=== PATIENT | male | born 1960 | race Caucasian/White ===

== ENCOUNTER 2016-11-14 11:24 | Inpatient (IN) | payer MEDICARE ==
[~2016-11-14] VITALS: Ht 182.9 cm; Wt 96.7 kg
[2016-11-14] MEDS ORDERED: NS 1,000 ML IV ONE (13:15)
[2016-11-14] MEDS ORDERED: AMPICILLIN SOD/SULBACTAM SOD 3 GM in D5W MINI-BAG PLUS 100 ML IV ONE (13:15)
[2016-11-14 14:09] LABS: BASO # 0.1 K/mm3 (0.0-0.2); BASO % 0.5 % (0.0-1.0); EOS % 0.3 % (0.0-3.0); LARGE UNSTAINED CELL # 0.2 K/mm3 (0.0-0.4); LARGE UNSTAINED CELL % 1.4 % (0.0-4.0); LYMPH # 2.2 K/mm3 (1.5-4.5); MEAN CORPUSCULAR HEMOGLOBIN 27.5 pg (27.0-33.0); MEAN CORPUSCULAR HGB CONC 34.1 g/dl (32.0-36.5); MEAN CORPUSCULAR VOLUME 80.7 fl (80.0-96.0); MONO # 0.9 K/mm3 (0.0-0.8); MONO % 5.8 % (0.0-5.0); NEUTROPHILS # 12.2 K/mm3 (1.8-7.7); NEUTROPHILS % 78.1 % (36.0-66.0); PLATELET COUNT, AUTOMATED 326 k/mm3 (150-450); RED CELL DISTRIBUTION WIDTH 12.7 % (11.5-14.5); WHITE BLOOD COUNT 15.6 K/mm3 (4.0-10.0)
[2016-11-14 14:12] LABS: ANION GAP 10 MEQ/L (8-16); BLOOD UREA NITROGEN 14 MG/DL (7-18); CALCIUM LEVEL 9.7 MG/DL (8.5-10.1); CARBON DIOXIDE LEVEL 24 MEQ/L (21-32); CHLORIDE LEVEL 103 MEQ/L (98-107); CREATININE FOR GFR 1.13 MG/DL (0.70-1.30); GLOMERULAR FILTRATION RATE > 60.0 (>56); GLUCOSE, FASTING 112 MG/DL (70-105); POTASSIUM SERUM 3.8 MEQ/L (3.5-5.1); SODIUM LEVEL 137 MEQ/L (136-145)
[2016-11-14] MEDS ORDERED: ISOVUE-370 76% 100ML VIAL (Q9967) As Ordered ONE (14:15)
[2016-11-14] MEDS ORDERED: METOPROLOL 5 MG/5 ML VIAL IV STA (15:03)
[2016-11-14] MEDS ORDERED: ONDANSETRON 4MG/2ML VIAL (J2405) IV PRN (15:15)
[2016-11-14] MEDS ORDERED: PERCOCET 5MG/325MG TAB PO PRN ×2 (15:15→15:30)
[2016-11-14] MEDS ORDERED: VANCOMYCIN HCL 1,000 MG, VIAL MATE ADAPTER 1 EACH in D5W 250 ML IV ONE (15:30)
[2016-11-14] MEDS ORDERED: MORPHINE 2 MG/ML 1ML SYRINGE IV PRN (15:30)
[2016-11-14] MEDS ORDERED: METOPROLOL TART 25 MG TABLET PO ONE (15:30)
[2016-11-14 16:10] LABS: ERYTHROCYTE SEDIMENTATION RATE 5 mm/hr (0-20)
[2016-11-14] MEDS ORDERED: cloNIDine 0.1 MG TAB PO ONE (16:30)
[2016-11-14] MEDS ORDERED: LABETALOL 100 MG TAB PO ONE (16:30)
--- NOTE | 2016-11-14 17:04 | HPEPDOC ---
General Date of Admission Nov 14, 2016 at 15:09 Chief Complaint The patient is a 56-year-old male admitted with a reason for visit of Dental Abscess/Facial Cellulitis. Source: Patient, Family Exam Limitations: Mild cognitive slowing, Other Severity: Severe History of Present Illness Mr Briones is a 56 year old male with no known past medical history, presents today after 2 day history of left sided swelling that began gradually. He has a slight degree of cognitive impairment and his mom is at bedside and provides much of the history. Apparently she has been trying to get him to come to the hospital for the facial swelling and he only agreed to do so today. The patient states he has not seen a doctor ( or any HCP for that matter) in greater than 20 years and as such he states he has no known medical problems, and takes no medications. He denies a history of trauma to the left side of his face but admits he doesn't take care of his teeth well, he has poor oral hygiene and does not see a dentist. He denies fever,rigors, nausea, vomiting, abdominal pain , diarrhea, constipation, loss of appetite, headache, nor blurred vision but does state its a little hard for him to see out of his left eye due to the facial swelling. He states that the facial swelling does not give him significant pain and doesn't seem to bother him too much except at night when he lays down on that side of his face to go to sleep. Home Medications No Active Prescriptions or Reported Meds Allergies Coded Allergies: No Known Allergies (Unverified , 11/14/16) Past Medical History Medical History no past medical history, however patient has not seen a doctor or other HCP in > 20 years Surgical History none Family History mother had DM2 and HTN father at age 38 from [place] Social History * Smoker: Denies Alcohol: Denies Drugs: denies Recent Travel/Sick Contacts: Denies: Recent travel lives with his mother, has a degree of impaired cognitive abilities. Review of Symptoms Constitutional: Denies: Chills, Fever Eyes: Reports: Eyelid inflammation (left eye), Vision change (decreased left eye vision due to swelling/inflammation ), Denies: Pain ENT: Denies: Dysphagia, Ear Pain, Head Aches, Post Nasal Drip, Sinus Congestion , Sore Throat Skin: Denies: Breakdown, Bruising, Dry, Itching, Jaundice, Lesions, Rash Pulmonary: Denies: Cough, Dyspnea, Pleuritic Chest Pain Cardiovascular: Denies: Chest Pain, Orthopnea, Palpitations Gastrointestinal: Denies: Abdominal Pain, Constipation, Diarrhea, Nausea, Vomiting Genitourinary: Denies: Dysuria Musculoskeletal: Denies: Neck Pain, Spasms Neurological: Denies: Change in speech, Incoordination, Numbness, Weakness Psych: Reports: Other Psych (degree of cognitive impairment) Physical Examination General Exam: Positive: Alert, Cooperative, Mild Distress Eye Exam: Positive: Conjunctiva & lids normal, EOMI, Other Eye Symptoms (left eye vision diminshed due to inflammation of left side of face), PERRLA ENT Exam: Positive: Atraumatic, Mucous membr. moist/pink, Nares Patent, Pharynx Normal, Tongue Midline, Negative: Pharyngeal Edema Neck Exam: Positive: Supple Chest Exam: Positive: Clear to auscultation, Normal air movement, Negative: Diminished, Rales, Rhonchi, Wheezing Heart Exam: Positive: Normal S1, Normal S2, Rate Normal Abdomen Exam: Positive: Normal bowel sounds, Soft, Negative: BS Hyperactive, BS Hypoactive, Hepatospenomegaly, Tenderness Extremity Exam: Negative: Clubbing, Cyanosis, Edema Psych Exam: Positive: Mental status NL, Other (degree of impaired cognition) Vital Signs Vital Signs Date Time Temp Pulse Resp B/P Pulse Ox O2 Delivery O2 Flow Rate FiO2 11/14/16 16:48 99.9 81 18 174/112 96 Room Air Laboratory Data Labs 24H Laboratory Tests 2 11/14/16 13:32: Anion Gap 10, White Blood Count 15.6H, Red Blood Count 5.76, Hemoglobin 15.8, Hematocrit 46.5, Mean Corpuscular Volume 80.7, Mean Corpuscular Hemoglobin 27.5 , Mean Corpuscular Hemoglobin Concent 34.1, Red Cell Distribution Width 12.7, Platelet Count 326, Neutrophils (%) (Auto) 78.1H, Lymphocytes (%) (Auto) 14.0L, Monocytes (%) (Auto) 5.8H, Eosinophils (%) (Auto) 0.3, Basophils (%) (Auto) 0.5 , Neutrophils # (Auto) 12.2H, Lymphocytes # (Auto) 2.2, Monocytes # (Auto) 0.9H , Eosinophils # (Auto) 0.0, Basophils # (Auto) 0.1, C-Reactive Protein, Quantitative 3.14H, Blood Urea Nitrogen 14, Creatinine 1.13, Sodium Level 137, Potassium Level 3.8, Chloride Level 103, Carbon Dioxide Level 24, Calcium Level 9.7, Erythrocyte Sedimentation Rate 5, Glomerular Filtration Rate > 60.0, Large Unclassified Cells # 0.2, Large Unclassified Cells % 1.4, Thyroid Stimulating Hormone (TSH) 1.120 11/14/16 13:41: Estimated Mean Plasma Glucose 131H, Hemoglobin A1c 6.2, Lactic Acid Level 2.4*H CBC/BMP Laboratory Tests 11/14/16 13:32 Calcium Level 9.7, Red Blood Count 5.76, Mean Corpuscular Volume 80.7, Mean Corpuscular Hemoglobin 27.5, Mean Corpuscular Hemoglobin Concent 34.1, Red Cell Distribution Width 12.7, Neutrophils (%) (Auto) 78.1 H, Lymphocytes (%) (Auto) 14.0 L, Monocytes (%) (Auto) 5.8 H, Eosinophils (%) (Auto) 0.3, Basophils (%) ( Auto) 0.5, Neutrophils # (Auto) 12.2 H, Lymphocytes # (Auto) 2.2, Monocytes # ( Auto) 0.9 H, Eosinophils # (Auto) 0.0, Basophils # (Auto) 0.1 Microbiology Microbiology 11/14/16 Blood Culture, Received Pending 11/14/16 Blood Culture, Received Pending 11/14/16 MRSA Screen, Received Pending Problems (1) Facial cellulitis Status: Acute Response to Treatment: Stable Problem Text: Likely secondary to poor dentition/oral hygiene and caries formation in left upper molar region Per CT of neck- possible phelgmon, facial left sided cellulitis with no abscess formation IV vancomycin therapy Unasyn therapy MRSA and blood culture pending afebrile at 99.2 F WBC 15.6 Spoke to oral surgeon physician relations manager, recommended continued IV antibiotic coverage since no abscess as per CT for drainage, they will follow up outpatient unless condition should worsen despite IV antibiotic coverage or abscess forms. (2) Elevated blood pressure reading Status: Chronic Response to Treatment: Stable Problem Text: hydralazine, labetalol and clonidine therapy 174/112 after labetalol administration 200/110 on admission (3) DVT prophylaxis Status: Acute Response to Treatment: Stable Problem Text: SCDs Plan / VTE VTE Prophylaxis Ordered?: Yes GME ATTESTATION GME ATTESTATION My preceptor for this patient encounter was physically present in the building during the encounter and was fully available. As needed, all aspects of the patient interview, examination, medical decision making process, and medical care plan development were reviewed and approved by the preceptor. Preceptor is aware and concurs with the plan as stated in the body of this note and will attest to such by his/her cosignature. JACQUELINE HILTON DO Nov 14, 2016 17:03
[2016-11-14 17:30] VITALS: BP 198/118
[2016-11-14] MEDS: hydrALAZINE INJ 20 MG/ML VIAL IV SCH ×2 (17:57→23:03)
[2016-11-14] MEDS: NS 1,000 ML IV SCH ×2 (17:57→23:04)
[2016-11-14 18:07] VITALS: BP 148/86
[2016-11-14] MEDS ORDERED: MAG SULF 1GM/100ML (MAG RUN) 1 GM in APPROPRIATE DILUENT 1 EA IV ONE (18:15)
[2016-11-14] MEDS ORDERED: POTASSIUM CHLORIDE 10 MEQ SR TABLET PO ONE (18:30)
[2016-11-14 20:00] VITALS: BP 169/91
[2016-11-14] MEDS: ACETAMINOPHEN TAB 650MG DOSE (2X325MG) PO PRN (20:26)
[2016-11-14] MEDS: VANCOMYCIN HCL 1,000 MG, VIAL MATE ADAPTER 1 EACH in D5W 250 ML IV SCH (20:26)
[2016-11-14] MEDS: AMPICILLIN SOD/SULBACTAM SOD 3 GM in D5W MINI-BAG PLUS 100 ML IV SCH (23:02)
[2016-11-14] MEDS: LABETALOL 100 MG TAB PO SCH (23:04)
[2016-11-14 23:59] VITALS: BP 153/74
[2016-11-15] VITALS (7 sets, daily range): BP systolic 130–180; BP diastolic 78–100
[2016-11-15] MEDS: hydrALAZINE INJ 20 MG/ML VIAL IV SCH ×6 (01:06→22:45)
[2016-11-15] MEDS: AMPICILLIN SOD/SULBACTAM SOD 3 GM in D5W MINI-BAG PLUS 100 ML IV SCH ×4 (02:35→21:28)
[2016-11-15] MEDS: VANCOMYCIN HCL 1,000 MG, VIAL MATE ADAPTER 1 EACH in D5W 250 ML IV SCH ×3 (03:58→20:35)
[2016-11-15] MEDS: NS 1,000 ML IV SCH ×2 (03:59→11:13)
[2016-11-15 05:41] LABS: BASO % 0.4 % (0.0-1.0); EOS # 0.1 K/mm3 (0.0-0.50); EOS % 0.7 % (0.0-3.0); LARGE UNSTAINED CELL # 0.2 K/mm3 (0.0-0.4); LARGE UNSTAINED CELL % 1.6 % (0.0-4.0); LYMPH # 2.2 K/mm3 (1.5-4.5); LYMPH % 16.9 % (24.0-44.0); MEAN CORPUSCULAR HEMOGLOBIN 27.2 pg (27.0-33.0); MEAN CORPUSCULAR HGB CONC 33.8 g/dl (32.0-36.5); MEAN CORPUSCULAR VOLUME 80.5 fl (80.0-96.0); MONO # 1.1 K/mm3 (0.0-0.8); MONO % 8.9 % (0.0-5.0); NEUTROPHILS # 8.5 K/mm3 (1.8-7.7); NEUTROPHILS % 71.5 % (36.0-66.0); PLATELET COUNT, AUTOMATED 247 k/mm3 (150-450); RED CELL DISTRIBUTION WIDTH 12.8 % (11.5-14.5); WHITE BLOOD COUNT 11.8 K/mm3 (4.0-10.0)
[2016-11-15 06:02] LABS: ANION GAP 10 MEQ/L (8-16); BLOOD UREA NITROGEN 11 MG/DL (7-18); CARBON DIOXIDE LEVEL 21 MEQ/L (21-32); CHLORIDE LEVEL 110 MEQ/L (98-107); CHOLESTEROL LEVEL 159 MG/DL (<200); CREATININE FOR GFR 0.97 MG/DL (0.70-1.30); GLOMERULAR FILTRATION RATE > 60.0 (>56); GLUCOSE, FASTING 156 MG/DL (70-105); POTASSIUM SERUM 3.4 MEQ/L (3.5-5.1); SODIUM LEVEL 141 MEQ/L (136-145); TRIGLYCERIDES LEVEL 81 MG/DL (<150)
--- NOTE | 2016-11-15 06:48 | REP ---
CT SOFT-TISSUE NECK WITH CONTRAST: 11/14/2016. Clinical history: Left facial cellulitis. Question dental abscess. Technique: Bolus of 75 ml Optiray-320 given and scanning through the neck and facial regions. Findings: There is carious dentition involving the maxilla with at least two breaches of the maxillary cortex anteriorly with adjacent soft tissue swelling much greater left than right. The buccal mucosa is thickened more on the left than right adjacent to the maxillary alveolar ridge and there is carious dentition on both sides of the maxilla, the right mandible and with absent molars on the mandible. There is no penetration of the septum on either orbit so of this is preseptal cellulitis on that left side for the lower half of the orbit. There is an air-fluid level in the maxillary sinus representing acute sinusitis. I do not see fracture of the maxillary sinus randolph. Zygomatic arches, nasal spine of the maxilla and nasal bones are intact. Septum slightly deviated towards the right. The right maxillary sinus shows mucosal thickening anteriorly at its inferior margin. The ostiomeatal complexes are patent bilaterally. I do not see facial swelling on the right. Some degenerative disc changes in the cervical spine noted. Craniocervical junction intact. The mandibular condyles articulate normally with the skull base. Mastoids are symmetric and grossly intact. Impression: 1. Facial cellulitis and thickening/edema of the buccal mucosa suspicious for a phlegmon or early abscess development related to carious dentition in the left maxillary alveolar ridge. The swelling extends up the left side of the face to the intraorbital region with preseptal cellulitis. No drainable abscess cavity or fluid collection visible. There is most likely infection, however. Signed by Jameson Trujillo MD 11/15/2016 07:59 A
[2016-11-15] MEDS: LABETALOL 100 MG TAB PO SCH ×2 (08:56→21:28)
[2016-11-15] MEDS: KCL 10MEQ IN 100ML SWI (KRUN) 10 MEQ in APPROPRIATE DILUENT 1 EA IV SCH ×6 (08:57→12:32)
[2016-11-15] MEDS ORDERED: amLODIPine 5 MG TAB PO SCH (09:00)
--- NOTE | 2016-11-15 10:29 | PHACANCOPD ---
PHARMACY VANCOMYCIN DOSING Pt Demographics Demographics Patient Age:56 , Weight:96.900 , Gender: male Adjusted Body Weight Date: 11/15/16, Adjusted Body Weight: Kg Events Past 24 Hours Events Past 24 Hours: YES: Elevation in WBC, Fever, NO: Change in CrCl, Dialysis, Diuretic Therapy, Other, Pending Diagnostics, Pending Procedures Vancomycin Vancomycin indication: facial cellulitis/dental Vancomycin Target Ranges: 10-20 mcg/ml Vancomycin Load Y/N: Yes Load Dose Date Time Vancomycin Load Dose: 1000mg Date: 11/14 Time: 16:00, 20:00 Vancomycin Dose Date: 11/15/16. Current Vancomycin Dose: [1g IV q8h @20] Intermittent Dosing?: No Labs Labs Item Value Date Time White Blood Count 15.6 K/mm3 H 11/14/16 1332 White Blood Count 11.8 K/mm3 H 11/15/16 0457 Creatinine 1.13 MG/DL 11/14/16 1332 Creatinine 0.97 MG/DL 11/15/16 0457 C-Reactive Protein, Quantitative 3.14 MG/DL H 11/14/16 1332 Vital Signs Label Value Date Time Patient Temperature 100.1 degrees F 11/15/16 0400 Temperature Source Temporal 11/15/16 0400 Patient Temperature 100.1 degrees F 11/15/16 0800 Temperature Source Skin 11/15/16 0800 Patient Temperature 99.9 degrees F 11/14/16 2359 Temperature Source Temporal 11/14/16 2359 Micro Microbiology 11/14/16 Blood Culture, Received Pending 11/14/16 Blood Culture, Received Pending 11/14/16 MRSA Screen, Received Pending Creatinine Clearance Date:11/15/16. Creatinine Clearance: [94 ml/min]. Pending Labs vanco trough 11/16 @11:00 Assessment and Plan Maintaining Current Dose?: Yes Reason for dose change: No Dose Change Pharmacist Note Pharmacist Note Date: 11/15/16. Pharmacist note: pt has been admitted for facial cellulitis secondary to possible dental abscess. He has poor oral hygiene and no medical Hx. So far, imaging has ruled out an abscess and he will be treated with IV abx and follow up outpatient. Unasyn and vancomycin were started yesterday afternoon , WBCs have improved but pt remains febrile. I started him on vanco IV 1g x2 doses 4 hours apart followed by 1g q8h. I have a trough ordered for tomorrow morning. Jake Garcia Pharm.D. Nov 15, 2016 10:29
--- NOTE | 2016-11-15 14:05 | IPNPDOC ---
Text Note Date of Service The patient was seen on 11/15/16. NOTE Subjective: Patient states the swelling on the left side of his face has significantly improved. Objective: Vitals: (see below) General: No acute distress, laying comfortably in bed. HEENT: Moist mucous membranes. Left facial swelling and induration improved. This has been marked when the patient was admitted. Patient does have significant dental caries. No tenderness. Able to open his mouth completely. No drainage noted. Visual ventura intact. Pupils 2-3 mm equal and reactive to light. EOMI. Neck: No JVD or lymphadenopathy Cardiac: RRR, No murmurs Pulm: Clear to auscultation b/l. No wheezing, rhonchi Abd: NT/ND + BS Ext: No edema or cyanosis Labs (see below) Images: CT Neck 11/14/16 Impression: 1. Facial cellulitis and thickening/edema of the buccal mucosa suspicious for a phlegmon or early abscess development related to carious dentition in the left maxillary alveolar ridge. The swelling extends up the left side of the face to the intraorbital region with preseptal cellulitis. No drainable abscess cavity or fluid collection visible. There is most likely infection, however. Assessment/Plan 1. Facial cellulitis, with possible phlegmon and no overt abscess formation - patient on Unasyn and vancomycin. Leukocytosis and CRP are improving. Lactic acidosis resolved. Afebrile. We'll continue IV antibiotics. Admitting attending had spoken to the hvac operations technician oral surgeon, who recommended continuing antibiotics and no surgical intervention at this time. 2. Dental caries- will need outpatient dental follow-up. 3. Hypertension- continue current meds. Amlodipine added. 4. Baseline mental retardation 5. Hypokalemia- replaced DVT prophy: Enoxaparin VS,Fishbone, I+O VS, Fishbone, I+O Laboratory Tests 11/15/16 04:57 Red Blood Count 4.29 L, Mean Corpuscular Volume 80.5, Mean Corpuscular Hemoglobin 27.2, Mean Corpuscular Hemoglobin Concent 33.8, Red Cell Distribution Width 12.8, Neutrophils (%) (Auto) 71.5 H, Lymphocytes (%) (Auto) 16.9 L, Monocytes (%) (Auto) 8.9 H, Eosinophils (%) (Auto) 0.7, Basophils (%) ( Auto) 0.4, Neutrophils # (Auto) 8.5 H, Lymphocytes # (Auto) 2.2, Monocytes # ( Auto) 1.1 H, Eosinophils # (Auto) 0.1, Basophils # (Auto) 0.0 Vital Signs Date Time Temp Pulse Resp B/P Pulse Ox O2 Delivery O2 Flow Rate FiO2 11/15/16 10:00 152/82 11/15/16 08:56 94 11/15/16 08:00 100.1 18 95 Room Air I&O- Last 24 Hours up to 6 AM 11/15/16 06:00 Intake Total 240 ml Output Total 1350 ml Balance -1110 ml AMRIT BARRAZA MD Nov 15, 2016 14:05
[2016-11-15] MEDS: ENOXAPARIN 40 MG/0.4 ML SYRINGE (J1650) SC SCH (17:06)
[2016-11-15] MEDS ORDERED: amLODIPine 5 MG TAB PO ONE (17:30)
[2016-11-15] MEDS: ACETAMINOPHEN TAB 650MG DOSE (2X325MG) PO PRN ×2 (18:06→23:58)
[2016-11-16] MEDS: hydrALAZINE INJ 20 MG/ML VIAL IV SCH ×4 (02:00→14:00)
[2016-11-16] MEDS: AMPICILLIN SOD/SULBACTAM SOD 3 GM in D5W MINI-BAG PLUS 100 ML IV SCH ×4 (02:55→21:12)
[2016-11-16] MEDS: VANCOMYCIN HCL 1,000 MG, VIAL MATE ADAPTER 1 EACH in D5W 250 ML IV SCH ×3 (03:37→21:12)
[2016-11-16 05:37] LABS: BASO # 0.1 K/mm3 (0.0-0.2); BASO % 0.7 % (0.0-1.0); EOS # 0.2 K/mm3 (0.0-0.50); EOS % 1.3 % (0.0-3.0); LARGE UNSTAINED CELL # 0.2 K/mm3 (0.0-0.4); LARGE UNSTAINED CELL % 1.8 % (0.0-4.0); LYMPH # 2.1 K/mm3 (1.5-4.5); MEAN CORPUSCULAR HEMOGLOBIN 26.9 pg (27.0-33.0); MEAN CORPUSCULAR HGB CONC 33.1 g/dl (32.0-36.5); MONO # 0.9 K/mm3 (0.0-0.8); MONO % 7.3 % (0.0-5.0); NEUTROPHILS # 8.8 K/mm3 (1.8-7.7); NEUTROPHILS % 72.8 % (36.0-66.0); PLATELET COUNT, AUTOMATED 279 k/mm3 (150-450); RED CELL DISTRIBUTION WIDTH 12.9 % (11.5-14.5)
[2016-11-16 05:53] VITALS: BP 165/80
[2016-11-16 05:53] LABS: ANION GAP 10 MEQ/L (8-16); BLOOD UREA NITROGEN 7 MG/DL (7-18); CALCIUM LEVEL 8.4 MG/DL (8.5-10.1); CARBON DIOXIDE LEVEL 23 MEQ/L (21-32); CHLORIDE LEVEL 107 MEQ/L (98-107); CREATININE FOR GFR 0.98 MG/DL (0.70-1.30); GLOMERULAR FILTRATION RATE > 60.0 (>56); GLUCOSE, FASTING 127 MG/DL (70-105); POTASSIUM SERUM 3.8 MEQ/L (3.5-5.1); SODIUM LEVEL 140 MEQ/L (136-145)
[2016-11-16] MEDS: ACETAMINOPHEN TAB 650MG DOSE (2X325MG) PO PRN (06:00)
[2016-11-16] MEDS ORDERED: LISINOPRIL 10 MG TAB PO ONE (07:45)
[2016-11-16 08:00] VITALS: BP 140/77
[2016-11-16] MEDS: LABETALOL 100 MG TAB PO SCH ×2 (08:44→21:12)
[2016-11-16] MEDS: amLODIPine 10 MG TAB PO SCH (08:44)
[2016-11-16] MEDS ORDERED: ISOVUE-370 76% 100ML VIAL (Q9967) As Ordered ONE (09:01)
--- NOTE | 2016-11-16 11:23 | REP ---
MAXILLOFACIAL CT STUDY WITH CONTRAST: HISTORY: Re-evaluate possible abscess. Comparison CT study of the neck is from 11/14/2016. CT CONTRAST DOSE: 75 mL of Isovue-[address] TECHNIQUE: Helical scanning is acquired, and 3 mm axial images are reformatted. Coronal and sagittal multiplanar reformation images are generated. FINDINGS: There is evidence of a 1.5 x 1.0 x 1.4 cm left periodontal abscess adjacent to carious teeth at the left mid maxillary alveolus. There is adjacent soft tissue swelling. There is some bony irregularity and lucency surrounding the two of the anterior left maxillary teeth. However, bony irregularity and erosive changes even more prominent in the anterior maxillary alveolus on the right. There is no right-sided abscess seen. There is an air-fluid level in the left maxillary sinus again noted. There is preseptal periorbital soft tissue swelling again seen, although this appears somewhat improved. No intracranial fluid collection or abnormality noted. IMPRESSION: 1.5 cm left periodontal abscess adjacent to the anterior maxilla on the left related to multiple carious teeth. Bilateral maxillary alveolar bony erosive change, this latter finding is actually more prominent on the right. Signed by Eddie Doan MD 11/16/2016 11:51 A
[2016-11-16 11:34] VITALS: BP 122/71
[2016-11-16] MEDS ORDERED: SLF 3 ML SYR IV PRN (11:45)
--- NOTE | 2016-11-16 14:14 | IPNPDOC ---
Text Note Date of Service The patient was seen on 11/16/16. NOTE Subjective: Patient states the swelling has improved. Objective: Vitals: (see below) General: No acute distress, laying comfortably in bed. HEENT: Moist mucous membranes. Left facial swelling has significantly improved. Patient does have significant dental caries. No tenderness. Able to open his mouth completely. No drainage noted. Visual ventura intact. Pupils 2-3 mm equal and reactive to light. EOMI. Neck: No JVD or lymphadenopathy Cardiac: RRR, No murmurs Pulm: Clear to auscultation b/l. No wheezing, rhonchi Abd: NT/ND + BS Ext: No edema or cyanosis Labs (see below) Images: CT Neck 11/14/16 Impression: 1. Facial cellulitis and thickening/edema of the buccal mucosa suspicious for a phlegmon or early abscess development related to carious dentition in the left maxillary alveolar ridge. The swelling extends up the left side of the face to the intraorbital region with preseptal cellulitis. No drainable abscess cavity or fluid collection visible. There is most likely infection, however. CT Maxillofacial 11/16/16 FINDINGS: There is evidence of a 1.5 x 1.0 x 1.4 cm left periodontal abscess adjacent to carious teeth at the left mid maxillary alveolus. There is adjacent soft tissue swelling. There is some bony irregularity and lucency surrounding the two of the anterior left maxillary teeth. However, bony irregularity and erosive changes even more prominent in the anterior maxillary alveolus on the right. There is no right-sided abscess seen. There is an air-fluid level in the left maxillary sinus again noted. There is preseptal periorbital soft tissue swelling again seen, although this appears somewhat improved. No intracranial fluid collection or abnormality noted. IMPRESSION: 1.5 cm left periodontal abscess adjacent to the anterior maxilla on the left related to multiple carious teeth. Bilateral maxillary alveolar bony erosive change, this latter finding is actually more prominent on the right. Assessment/Plan 1. Facial cellulitis,now with abscess formation - patient on Unasyn and vancomycin. Leukocytosis and CRP are improving. Lactic acidosis resolved. Afebrile. We'll continue IV antibiotics. Spoke with Dr. Dunne, who will be seeing patient today. 2. Dental caries- will need outpatient dental follow-up. 3. Hypertension- continue current meds. Amlodipine added. 4. Baseline mental retardation 5. Hypokalemia- replaced DVT prophy: Enoxaparin VS,Fishbone, I+O VS, Fishbone, I+O Laboratory Tests 11/16/16 04:57 Calcium Level 8.4 L, Red Blood Count 4.50, Mean Corpuscular Volume 81.0, Mean Corpuscular Hemoglobin 26.9 L, Mean Corpuscular Hemoglobin Concent 33.1, Red Cell Distribution Width 12.9, Neutrophils (%) (Auto) 72.8 H, Lymphocytes (%) ( Auto) 16.0 L, Monocytes (%) (Auto) 7.3 H, Eosinophils (%) (Auto) 1.3, Basophils (%) (Auto) 0.7, Neutrophils # (Auto) 8.8 H, Lymphocytes # (Auto) 2.1, Monocytes # (Auto) 0.9 H, Eosinophils # (Auto) 0.2, Basophils # (Auto) 0.1 Vital Signs Date Time Temp Pulse Resp B/P Pulse Ox O2 Delivery O2 Flow Rate FiO2 11/16/16 11:34 99.9 85 20 122/71 95 Room Air I&O- Last 24 Hours up to 6 AM 11/16/16 06:00 Intake Total 2140 ml Output Total 1700 ml Balance 440 ml AMRIT BARRAZA MD Nov 16, 2016 14:14
[2016-11-16] MEDS: SLF 3 ML SYR IV SCH ×2 (14:39→21:12)
[2016-11-16 16:00] VITALS: BP 169/79
[2016-11-16] MEDS: ENOXAPARIN 40 MG/0.4 ML SYRINGE (J1650) SC SCH (18:35)
[2016-11-16 20:24] VITALS: BP 159/79
[2016-11-17 00:03] VITALS: BP 139/77
[2016-11-17] MEDS: AMPICILLIN SOD/SULBACTAM SOD 3 GM in D5W MINI-BAG PLUS 100 ML IV SCH ×2 (03:29→08:51)
[2016-11-17] MEDS: VANCOMYCIN HCL 1,000 MG, VIAL MATE ADAPTER 1 EACH in D5W 250 ML IV SCH ×2 (03:29→12:00)
[2016-11-17] MEDS: SLF 3 ML SYR IV SCH (03:29)
[2016-11-17 05:28] LABS: BASO # 0.1 K/mm3 (0.0-0.2); BASO % 0.5 % (0.0-1.0); EOS # 0.3 K/mm3 (0.0-0.50); EOS % 2.7 % (0.0-3.0); LARGE UNSTAINED CELL # 0.2 K/mm3 (0.0-0.4); LARGE UNSTAINED CELL % 1.4 % (0.0-4.0); LYMPH # 2.7 K/mm3 (1.5-4.5); LYMPH % 20.5 % (24.0-44.0); MEAN CORPUSCULAR HEMOGLOBIN 27.1 pg (27.0-33.0); MEAN CORPUSCULAR HGB CONC 34.1 g/dl (32.0-36.5); MEAN CORPUSCULAR VOLUME 79.5 fl (80.0-96.0); MONO # 0.7 K/mm3 (0.0-0.8); MONO % 5.5 % (0.0-5.0); NEUTROPHILS # 8.7 K/mm3 (1.8-7.7); NEUTROPHILS % 69.5 % (36.0-66.0); PLATELET COUNT, AUTOMATED 305 k/mm3 (150-450); RED CELL DISTRIBUTION WIDTH 12.4 % (11.5-14.5); WHITE BLOOD COUNT 12.6 K/mm3 (4.0-10.0)
[2016-11-17 05:44] VITALS: BP 153/76
[2016-11-17 05:55] LABS: ANION GAP 13 MEQ/L (8-16); BLOOD UREA NITROGEN 10 MG/DL (7-18); CARBON DIOXIDE LEVEL 21 MEQ/L (21-32); CHLORIDE LEVEL 104 MEQ/L (98-107); CREATININE FOR GFR 1.11 MG/DL (0.70-1.30); GLOMERULAR FILTRATION RATE > 60.0 (>56); GLUCOSE, FASTING 160 MG/DL (70-105); POTASSIUM SERUM 3.7 MEQ/L (3.5-5.1); SODIUM LEVEL 138 MEQ/L (136-145)
[2016-11-17] MEDS ORDERED: AUGMENTIN 500 MG TAB PO SCH ×2 (06:00→14:00)
[2016-11-17 07:52] VITALS: BP 160/91
[2016-11-17] MEDS ORDERED: AUGM875T27 PO (08:24)
[2016-11-17 08:50] VITALS: BP 160/91
[2016-11-17] MEDS: LABETALOL 100 MG TAB PO SCH (08:50)
[2016-11-17] MEDS: amLODIPine 10 MG TAB PO SCH (08:50)
[2016-11-17] MEDS ORDERED: LISINOPRIL 10 MG TAB PO SCH (09:00)
[2016-11-17] MEDS ORDERED: AMLO10TA2 PO (14:13)
[2016-11-17] MEDS ORDERED: LISI10TA4 PO (14:13)
[2016-11-17] MEDS ORDERED: LABE10TAB PO (14:13)
--- NOTE | 2016-11-17 17:17 | DSES ---
DATE OF ADMISSION: 11/14/2016 DATE OF DISCHARGE: 11/17/2016 PRIMARY CARE PROVIDER: None. CONSULTANTS: Oral Surgeon, Dr. Dunne. PROCEDURES: None. COMPLICATIONS: None. ADMISSION/DISCHARGE DIAGNOSES: 1. Facial cellulitis with abscess. 2. Dental caries. 3. Hypertension. 4. Baseline mental retardation. 5. Hypokalemia. HOSPITALIZATION COURSE: The patient is a 56-year-old male who presented to [facility] on 11/14/2016 for facial swelling. Neck CT was performed, which showed facial cellulitis suspicious for phlegmon or early abscess development. Cultures were obtained, and the patient was started on empiric antibiotic treatments, and oral surgeon consulted. With antibiotic treatment, the patient's white count showed continued improvement, and the patient had improvement of the fever. Then, the patient was evaluated by the oral surgeon, Dr. Dunne, and recommended continuing Augmentin for 10 days and the patient will followup with Dr. Dunne in the outpatient setting in 2-3 days and then the patient was determined to be medically stable for discharge on 11/17/2016. OBJECTIVE: VITAL SIGNS: Temperature is 99.1, pulse is 85, respirations 20, blood pressure is 160/91, pulse oximetry is 96% in room air. LABORATORY DATA: WBC is 12.6, hemoglobin 12.1, hematocrit 35.5, platelet count is 305. Sodium is 138, potassium 3.7, chloride is 104, carbon dioxide 21, BUN 10, creatinine 1.11, GFR greater than 60, fasting glucose 160, calcium is 9, C-reactive is 5. A1c is 6.2. Microbiology: Blood culture was negative after 72 hours, two sets. Methicillin-resistant Staphylococcus aureus (MRSA) screen is negative. IMAGING STUDIES: CT of the neck with contrast obtained on 11/14/2016 showed facial cellulitis with edema/thickening of buccal mucosa, suspicious for phlegmon or early abscess development related to the carious dentition in the left maxillary alveolar ridge. CT of the maxillofacial with contrast on 11/16/2016 showed 1.5 cm left periodontal abscess adjacent to the anterior maxilla on the left related to multiple carious teeth and bilateral maxillary alveolar bony erosive change. DISCHARGE INSTRUCTIONS: Discontinue line. Discharge home. Activity as tolerated. Diet as tolerated. The patient should followup with oral surgeon Dr. Dunne in 2-3 days. The patient will need to establish with a primary care provider, and the patient should be seen within 1-2 weeks. DISCHARGE MEDICATIONS: - amlodipine 10 mg by mouth daily - Augmentin 875 mg by mouth twice a day for 10 days - labetalol 100 mg by mouth twice a day - lisinopril 10 mg by mouth daily DISCHARGE CONDITION: Stable. DISCHARGE TIME: Greater than 30 minutes.
== END 2016-11-17 14:37 | disposition home or self-care (01) | DRG 603 ==
LOC: M ED 14:23 → M ED INP 15:09 → M PCU 17:29
PROVIDERS: ADMIT General Practice; ATTEND Internal Medicine
DX: L03.211 Cellulitis of face (principal); K02.9 Dental caries, unspecified; F79 Unspecified intellectual disabilities; K05.219 Aggressive periodontitis, localized, unspecified severity; I10 Essential (primary) hypertension; E87.6 Hypokalemia; Z79.899 Other long term (current) drug therapy; Z83.3 Family history of diabetes mellitus; Z82.49 Family history of ischemic heart disease and other diseases of the circulatory system

== ENCOUNTER → 2016-12-24 | Outpatient (REF) | payer MEDICARE ==
[~2016-12-24] MED LIST: AMLO10TA2 PO; AUGM875T27 PO; LABE10TAB PO; LISI10TA4 PO
[2016-12-24 20:25] LABS: MEAN CORPUSCULAR HEMOGLOBIN 27.7 pg (27.0-33.0); MEAN CORPUSCULAR HGB CONC 34.4 g/dl (32.0-36.5); MEAN CORPUSCULAR VOLUME 80.6 fl (80.0-96.0); RED CELL DISTRIBUTION WIDTH 12.8 % (11.5-14.5); WHITE BLOOD COUNT 9.3 K/mm3 (4.0-10.0)
[2016-12-24 20:41] LABS: ALBUMIN 4.1 GM/DL (3.2-5.2); ALBUMIN/GLOBULIN RATIO 1.24 (1.00-1.93); ALKALINE PHOSPHATASE 61 U/L (45-117); ALT/SGPT 38 U/L (12-78); ANION GAP 8 MEQ/L (8-16); AST/SGOT 15 U/L (15-37); BILIRUBIN,TOTAL 0.2 MG/DL (0.2-1.0); BLOOD UREA NITROGEN 12 MG/DL (7-18); CALCIUM LEVEL 8.5 MG/DL (8.5-10.1); CARBON DIOXIDE LEVEL 23 MEQ/L (21-32); CHLORIDE LEVEL 110 MEQ/L (98-107); CREATININE FOR GFR 0.97 MG/DL (0.70-1.30); GLOMERULAR FILTRATION RATE > 60.0 (>56); GLUCOSE, FASTING 107 MG/DL (70-105); POTASSIUM SERUM 3.8 MEQ/L (3.5-5.1); SODIUM LEVEL 141 MEQ/L (136-145); TOTAL PROTEIN 7.4 GM/DL (6.4-8.2)
== END ==
LOC: M SFHCLERA 17:00
PROVIDERS: ATTEND Family Medicine
DX: I10 Essential (primary) hypertension (principal); L03.90 Cellulitis, unspecified
CPT/HCPCS: 80053; 81001; 82043; 85027; G0463

== ENCOUNTER → 2018-03-08 | Outpatient (REF) | payer MEDICARE ==
[2018-03-08 20:31] LABS: BASO # 0.1 10^3/uL (0.0-0.2); BASO % 0.9 % (0.0-1.0); EOS # 0.3 10^3/uL (0.0-0.50); EOS % 2.8 % (0.0-3.0); HEMATOCRIT 43.4 % (42.0-52.0); HEMOGLOBIN 14.3 g/dl (13.5-17.5); IMMATURE GRANULOCYTE % 0.2 % (0-3.0); LYMPH # 2.9 10^3/uL (1.5-4.5); LYMPH % 31.9 % (24.0-44.0); MEAN CORPUSCULAR HEMOGLOBIN 27.1 pg (27.0-33.0); MEAN CORPUSCULAR HGB CONC 32.9 g/dl (32.0-36.5); MEAN CORPUSCULAR VOLUME 82.4 fl (80.0-96.0); MONO # 0.9 10^3/uL (0.0-0.8); MONO % 9.5 % (0.0-5.0); NEUTROPHILS % 54.7 % (36.0-66.0); PLATELET COUNT, AUTOMATED 286 10^3/uL (150-450); RED BLOOD COUNT 5.27 10^6/uL (4.30-6.10); RED CELL DISTRIBUTION WIDTH 12.2 % (11.5-14.5); WHITE BLOOD COUNT 9.2 10^3/uL (4.0-10.0)
[2018-03-08 20:48] LABS: ESTIMATED AVERAGE GLUCOSE 134 MG/DL (60-110); HEMOGLOBIN A1c 6.3 %
[2018-03-08 20:50] LABS: ALBUMIN 4.2 GM/DL (3.2-5.2); ALKALINE PHOSPHATASE 67 U/L (45-117); ALT/SGPT 45 U/L (12-78); ANION GAP 11 MEQ/L (8-16); AST/SGOT 23 U/L (7-37); BILIRUBIN,TOTAL 0.4 MG/DL (0.2-1.0); BLOOD UREA NITROGEN 17 MG/DL (7-18); CALCIUM LEVEL 8.8 MG/DL (8.5-10.1); CARBON DIOXIDE LEVEL 23 MEQ/L (21-32); CHLORIDE LEVEL 108 MEQ/L (98-107); CHOLESTEROL LEVEL 188 MG/DL (<200); CREATININE FOR GFR 1.11 MG/DL (0.70-1.30); GLOMERULAR FILTRATION RATE > 60.0 (>56); GLUCOSE, FASTING 106 MG/DL (70-100); HDL CHOLESTEROL 39 MG/DL (>40); NON-HDL-C 149 MG/DL; POTASSIUM SERUM 4.1 MEQ/L (3.5-5.1); SODIUM LEVEL 142 MEQ/L (136-145); TOTAL PROTEIN 7.7 GM/DL (6.4-8.2); TRIGLYCERIDES LEVEL 195 MG/DL (<150)
[2018-03-08 21:00] LABS: MAU/CREAT RATIO 5.1 MCG/MG (0.0-30.0)
== END ==
LOC: M SFHCLERA 14:46
DX: I10 Essential (primary) hypertension (principal); Z79.899 Other long term (current) drug therapy
CPT/HCPCS: 84443

== ENCOUNTER → 2019-02-13 | Outpatient (REF) | payer MEDICARE ==
[~2019-02-13] MED LIST changes: -AMLO10TA2 PO; +AMLO10TA5 PO; -AUGM875T27 PO; +AUGM875T28 PO
[2019-02-13 20:54] LABS: APPEARANCE, URINE CLEAR (CLEAR); BACTERIA, URINE AUTO NEGATIVE (NEGATIVE); BILIRUBIN, URINE AUTO NEGATIVE (NEGATIVE); BLOOD, URINE BLOOD NEGATIVE (NEGATIVE); COLOR, URINE YELLOW (YELLOW); GLUCOSE, URINE (UA) AUTO NEGATIVE (NEGATIVE); KETONE, URINE AUTO NEGATIVE (NEGATIVE); LEUKOCYTE ESTERASE, URINE AUTO NEGATIVE (NEGATIVE); MUCUS, URINE SMALL (NEGATIVE); NITRITE, URINE AUTO NEGATIVE (NEGATIVE); PROTEIN, URINE AUTO NEGATIVE (NEGATIVE); RBC, URINE AUTO 0 /HPF (0-3); SPECIFIC GRAVITY URINE AUTO 1.023 (1.002-1.035); SQUAMOUS EPITHELIAL CELL UR AU 0 /HPF (0-6); UROBILINOGEN, URINE AUTO 0.2 mg/dL (0.0-2.0); WBC, URINE AUTO 1 /HPF (0-3)
[2019-02-13 21:01] LABS: ALBUMIN 3.9 GM/DL (3.2-5.2); ALT/SGPT 45 U/L (12-78); BILIRUBIN,TOTAL 0.2 MG/DL (0.2-1.0); BLOOD UREA NITROGEN 15 MG/DL (7-18); CALCIUM LEVEL 8.7 MG/DL (8.5-10.1); CARBON DIOXIDE LEVEL 23 MEQ/L (21-32); CHLORIDE LEVEL 112 MEQ/L (98-107); CHOLESTEROL LEVEL 181 MG/DL (<200); CHOLESTEROL RISK RATIO 5.484 (<5); CREATININE FOR GFR 0.96 MG/DL (0.70-1.30); GLOMERULAR FILTRATION RATE > 60.0 (>56); GLUCOSE, FASTING 102 MG/DL (70-100); HDL CHOLESTEROL 33 MG/DL (>40); LDL CHOLESTEROL 114 MG/DL (<100); NON-HDL-C 148 MG/DL; POTASSIUM SERUM 4.1 MEQ/L (3.5-5.1); SODIUM LEVEL 143 MEQ/L (136-145); TRIGLYCERIDES LEVEL 170 MG/DL (<150)
[2019-02-13 21:11] LABS: HEMOGLOBIN A1c 6.9 %
== END ==
LOC: M SFHCLERA 17:06
PROVIDERS: ATTEND Family Medicine
DX: I10 Essential (primary) hypertension (principal)

== ENCOUNTER → 2019-06-08 | Outpatient (REF) | payer MEDICARE ==
[2019-06-08 17:19] LABS: BLOOD UREA NITROGEN 13 MG/DL (7-18); CALCIUM LEVEL 8.7 MG/DL (8.5-10.1); CARBON DIOXIDE LEVEL 25 MEQ/L (21-32); CHLORIDE LEVEL 112 MEQ/L (98-107); CREATININE FOR GFR 1.08 MG/DL (0.70-1.30); GLOMERULAR FILTRATION RATE > 60.0 (>56); GLUCOSE, FASTING 95 MG/DL (70-100); POTASSIUM SERUM 4.3 MEQ/L (3.5-5.1); SODIUM LEVEL 143 MEQ/L (136-145)
[2019-06-08 17:46] LABS: HEMOGLOBIN A1c 6.3 %
== END ==
LOC: M SFHCLERA 14:07
PROVIDERS: ATTEND Family Medicine
DX: R73.02 Impaired glucose tolerance (oral) (principal); I10 Essential (primary) hypertension

== ENCOUNTER → 2020-02-20 | Outpatient (REF) | payer MEDICARE, OTHER ==
[~2020-02-20] MED LIST changes: -AMLO10TA5 PO; +AMLO1TAB25 PO
[2020-02-20 19:13] LABS: BASO # 0.1 10^3/uL (0.0-0.2); BASO % 0.9 % (0.0-1.0); EOS # 0.2 10^3/uL (0.0-0.5); EOS % 2.4 % (0.0-3.0); HEMATOCRIT 41.4 % (42.0-52.0); HEMOGLOBIN 13.5 g/dl (13.5-17.5); LYMPH # 3.2 10^3/uL (1.5-5.0); LYMPH % 31.5 % (24.0-44.0); MEAN CORPUSCULAR HEMOGLOBIN 26.9 pg (27.0-33.0); MEAN CORPUSCULAR HGB CONC 32.6 g/dl (32.0-36.5); MEAN CORPUSCULAR VOLUME 82.5 fl (80.0-96.0); MONO # 1.1 10^3/uL (0.0-0.8); MONO % 10.4 % (0.0-5.0); NEUTROPHILS # 5.5 10^3/uL (1.5-8.5); NEUTROPHILS % 54.4 % (36.0-66.0); PLATELET COUNT, AUTOMATED 293 10^3/uL (150-450); RED BLOOD COUNT 5.02 10^6/uL (4.30-6.10); WHITE BLOOD COUNT 10.1 10^3/uL (4.0-10.0)
[2020-02-20 19:17] LABS: BLOOD UREA NITROGEN 16 MG/DL (7-18); CALCIUM LEVEL 8.8 MG/DL (8.5-10.1); CARBON DIOXIDE LEVEL 21 MEQ/L (21-32); CHLORIDE LEVEL 109 MEQ/L (98-107); GLOMERULAR FILTRATION RATE > 60.0 (>56); GLUCOSE, FASTING 105 MG/DL (70-100); POTASSIUM SERUM 4.1 MEQ/L (3.5-5.1); SODIUM LEVEL 140 MEQ/L (136-145)
[2020-02-20 19:30] LABS: VITAMIN B12 LEVEL 451 PG/ML (247-911)
[2020-02-20 19:52] LABS: MALB URINE SIEMENS 6.6 MG/L; MAU/CREAT RATIO 4.4 MCG/MG (0.0-30.0)
[2020-02-20 20:01] LABS: HEMOGLOBIN A1c 6.1 %
== END ==
LOC: M SFHCLERA 14:54
PROVIDERS: ATTEND Family Medicine
DX: R73.02 Impaired glucose tolerance (oral) (principal); I10 Essential (primary) hypertension

== ENCOUNTER → 2021-02-18 | Outpatient (CLI) | payer MEDICARE, OTHER ==
[~2021-02-18] MED LIST changes: +LABE100T4 PO; -LABE10TAB PO; +LISI10TA22 PO; -LISI10TA4 PO
[2021-02-18 14:39] LABS: BLOOD UREA NITROGEN 13 MG/DL (7-18); CALCIUM LEVEL 9.4 MG/DL (8.5-10.1); CARBON DIOXIDE LEVEL 23 MEQ/L (21-32); CHLORIDE LEVEL 107 MEQ/L (98-107); CREATININE FOR GFR 1.03 MG/DL (0.70-1.30); GLOMERULAR FILTRATION RATE > 60.0 (>56); GLUCOSE, FASTING 94 MG/DL (70-100); POTASSIUM SERUM 4.1 MEQ/L (3.5-5.1); SODIUM LEVEL 138 MEQ/L (136-145)
[2021-02-18 14:52] LABS: MALB URINE SIEMENS 7.1 MG/L; MAU/CREAT RATIO 6.3 MCG/MG (0.0-30.0)
[2021-02-18 16:32] LABS: HEMOGLOBIN A1c 5.9 %
== END ==
LOC: M LAB 13:50
PROVIDERS: ATTEND Family Medicine
DX: R73.01 Impaired fasting glucose (principal)

== ENCOUNTER → 2021-03-05 | Outpatient (CLI) | payer MEDICARE ==
--- NOTE | 2021-03-05 09:50 | REP ---
INDICATION: HTN. COMPARISON: None. TECHNIQUE: Standard renal sonography with duplex Doppler interrogation renal arteries. FINDINGS: RENAL ULTRASOUND: The right kidney is 12.7 x 6.7 x 5.3 cm. Cortical thickness and echogenicity were normal. There is some sinus lipomatosis but no hydronephrosis or hydroureter. No visible renal mass or cyst. No echogenic focus to suggest calcification. The left kidney is 13.8 x 5.6 x 6.1 cm. It has normal cortical echogenicity and thickness. There is also some sinus lipomatosis but no hydronephrosis or hydroureter. No solid or cystic mass nor abnormal echogenic calcification. Limited visualization of the bladder a due to low bladder volume for this examination but it showed no abnormality. Prostate measured 5.6 x 4.6 x 4.2 cm giving prostate volume 57 cc, mildly enlarged RENAL ARTERY DOPPLER ULTRASOUND: Should be noted that the main renal arteries were obscured by gas shadowing. Accordingly, without peak renal artery velocities or peak aortic velocities, the renal aortic ratio cannot be calculated. Right kidney intrarenal: Upper pole resistive index 0.63, acceleration time 0.131. Midpole resistive index 0.68, acceleration time 0.175. Lower pole resistive index 0.65, acceleration time 0.197. Left kidney intrarenal: Upper pole resistive index 0.70, acceleration time 0.069. Midpole resistive index 0.72, acceleration time 0.042. Lower pole resistive index 0.72, acceleration time 0.042. The intrarenal vessels on the right in the upper, mid and lower pole all show elevated acceleration time and decreased resistive indices. The intrarenal acceleration times and resistive indices are normal on the left. IMPRESSION: 1. Bilateral kidneys are normal and symmetric in size, cortical thickness and echogenicity without mass, cyst, stone or hydronephrosis. No morphologic abnormalities. 2. The aorta and main renal arteries are obscured by extensive gas shadowing. 3. The intrarenal arteries in the upper, mid and lower pole on the left showed normal resistive indices and acceleration times. 4. The intrarenal arteries in the upper, mid and lower pole on the right showed reduced resistive index and markedly elevated acceleration times suggesting renal artery stenosis greater than 60%. Recommend dedicated renal artery MR angiogram if a candidate, CT angiogram if not an MR candidate. <Electronically signed by Jameson Trujillo > 03/05/21 0947
== END ==
LOC: M RAD 08:24
PROVIDERS: ATTEND Family Medicine
DX: I10 Essential (primary) hypertension (principal)

== ENCOUNTER → 2021-03-26 | Outpatient (CLI) | payer MEDICARE ==
[~2021-03-26] MED LIST changes: +ISOVUE-370 76% 100ML VIAL As Ordered ONE
--- NOTE | 2021-03-26 15:43 | REP ---
INDICATION: UNCONTROLLED HTN COMPARISON: Renal Doppler ultrasound 03/05/2021. TECHNIQUE: CT angiogram of the abdomen and pelvis was performed with intravenous administration of 100 cc of Isovue 370, without oral contrast. 3D MIP reconstruction images performed. FINDINGS: Abdominal aorta: No aneurysm or dissection. There are mild scattered atherosclerotic calcifications of the abdominal aorta. The celiac, superior and inferior mesenteric arteries demonstrate slight narrowing at their origins but no stenosis. There is a single main left renal artery which is not stenotic. There are 3 right renal arteries. And artery supplying the right upper pole demonstrates mild narrowing at its origin. Just inferior to that an artery supplying the mid right kidney is smaller in caliber, with mild narrowing and no definite stenosis. Inferior to that a 3rd accessory right renal artery is again somewhat small in caliber, with mild narrowing at its origin but no definite significant stenosis. There is mild diffuse plaquing throughout the bilateral common and external iliac arteries. Lung bases: There is a small hiatal hernia. Liver: Normal Gallbladder: Unremarkable. Spleen: Normal. Adrenals: Normal. Pancreas: Normal. Kidneys: Normal. Small and large bowel: Unremarkable. Free fluid: None. Adenopathy: None. Appendix: Not inflamed. Pelvis: No mass. A small left inguinal hernia contains noninflamed fat. Osseous structures: Unremarkable. IMPRESSION: Single main left renal artery. Three right renal arteries. All demonstrate slight narrowing with no definite significant stenosis. <Electronically signed by Jameel Barksdale > 03/26/21 1979
== END ==
LOC: M RAD 14:15
PROVIDERS: ATTEND Family Medicine
DX: I10 Essential (primary) hypertension (principal)
CPT/HCPCS: 74174; Q9967

== ENCOUNTER → 2021-10-01 | Outpatient (CLI) | payer MEDICARE ==
[~2021-10-01] MED LIST changes: -ISOVUE-370 76% 100ML VIAL As Ordered ONE
[2021-10-01 14:46] LABS: BLOOD UREA NITROGEN 13 MG/DL (7-18); CALCIUM LEVEL 8.9 MG/DL (8.8-10.2); CARBON DIOXIDE LEVEL 23 MEQ/L (21-32); CHLORIDE LEVEL 112 MEQ/L (98-107); CREATININE FOR GFR 1.07 MG/DL (0.70-1.30); GLOMERULAR FILTRATION RATE > 60.0 (>49); GLUCOSE, FASTING 109 MG/DL (70-100); POTASSIUM SERUM 4.1 MEQ/L (3.5-5.1); SODIUM LEVEL 140 MEQ/L (136-145)
[2021-10-01 15:16] LABS: HEMOGLOBIN A1c 6.1 %
== END ==
LOC: M LAB 14:04
PROVIDERS: ATTEND Family Medicine
DX: R73.03 Prediabetes (principal)

== ENCOUNTER → 2022-02-19 | Outpatient (CLI) | payer MEDICARE | LOC: M SLEEP HO 13:17 | PROVIDERS: ATTEND Internal Medicine Cardiovascular Disease | DX: R06.83 Snoring (principal) ==

== ENCOUNTER → 2022-04-10 | Outpatient (CLI) | payer MEDICARE, OTHER ==
[~2022-04-10] MED LIST changes: -LABE100T4 PO; +LABE100T6 PO
[2022-04-10 18:07] LABS: ALBUMIN 3.8 GM/DL (3.2-5.2); BLOOD UREA NITROGEN 16 MG/DL (7-18); CALCIUM LEVEL 9.2 MG/DL (8.8-10.2); CARBON DIOXIDE LEVEL 24 MEQ/L (21-32); CHLORIDE LEVEL 111 MEQ/L (98-107); CREATININE FOR GFR 1.11 MG/DL (0.70-1.30); GLOMERULAR FILTRATION RATE > 60.0 (>49); GLUCOSE, FASTING 109 MG/DL (70-100); PHOSPHORUS LEVEL 3.3 MG/DL (2.5-4.9); POTASSIUM SERUM 4.1 MEQ/L (3.5-5.1); SODIUM LEVEL 142 MEQ/L (136-145)
[2022-04-10 18:21] LABS: MALB URINE SIEMENS 13.2 MG/L; MAU/CREAT RATIO 4.2 MCG/MG (0.0-30.0)
== END ==
LOC: M LAB 16:44
PROVIDERS: ATTEND Internal Medicine Cardiovascular Disease
DX: I10 Essential (primary) hypertension (principal)

== ENCOUNTER → 2022-12-24 | Outpatient (CLI) | payer MEDICARE, MEDICAID ==
[2022-12-24 16:28] LABS: ALBUMIN 4.2 G/DL (3.2-5.2); ALKALINE PHOSPHATASE 65 U/L (46-116); ALT/SGPT 37 U/L (7.0-40); AST/SGOT 21 U/L (<34); BILIRUBIN,TOTAL 0.6 MG/DL (0.3-1.2); BLOOD UREA NITROGEN 14 MG/DL (9-23); CALCIUM LEVEL 9.3 MG/DL (8.3-10.6); CARBON DIOXIDE LEVEL 23 MMOL/L (20-31); CHLORIDE LEVEL 109 MMOL/L (98-107); CREATININE FOR GFR 1.04 MG/DL (0.70-1.30); GLOMERULAR FILTRATION RATE > 60.0 (>49); GLUCOSE, FASTING 92 MG/DL (74-106); POTASSIUM SERUM 4.2 MMOL/L (3.5-5.1); SODIUM LEVEL 138 MMOL/L (136-145)
[2022-12-24 16:29] LABS: CREATININE, URINE 136.7 MG/DL; MALB URINE SIEMENS < 3.0 MG/L; MAU/CREAT RATIO 2.1 MCG/MG (0.0-30.0)
== END ==
LOC: M LAB 14:21
PROVIDERS: ATTEND Family Medicine
DX: I10 Essential (primary) hypertension (principal); R73.03 Prediabetes

== ENCOUNTER → 2023-09-03 | Outpatient (CLI) | payer MEDICARE, MEDICAID ==
[2023-09-03 13:29] LABS: BASO # 0.1 10^3/uL (0.0-0.2); BASO % 0.8 % (0.0-1.0); EOS # 0.1 10^3/uL (0.0-0.5); EOS % 1.3 % (0.0-3.0); HEMATOCRIT 42.4 % (42.0-52.0); HEMOGLOBIN 14.2 g/dl (13.5-17.5); LYMPH # 2.7 10^3/uL (1.5-5.0); LYMPH % 27.7 % (24.0-44.0); MEAN CORPUSCULAR HEMOGLOBIN 27.2 pg (27.0-33.0); MEAN CORPUSCULAR HGB CONC 33.5 g/dl (32.0-36.5); MEAN CORPUSCULAR VOLUME 81.2 fl (80.0-96.0); MONO # 0.9 10^3/uL (0.0-0.8); MONO % 9.2 % (2.0-8.0); NEUTROPHILS # 5.8 10^3/uL (1.5-8.5); NEUTROPHILS % 60.7 % (36.0-66.0); PLATELET COUNT, AUTOMATED 271 10^3/uL (150-450); RED BLOOD COUNT 5.22 10^6/uL (4.30-6.10); WHITE BLOOD COUNT 9.6 10^3/uL (4.0-10.0)
[2023-09-03 14:09] LABS: ALBUMIN 3.9 G/DL (3.2-5.2); ALKALINE PHOSPHATASE 64 U/L (46-116); ALT/SGPT 37 U/L (7.0-40); AST/SGOT 13 U/L (<34); BILIRUBIN,TOTAL 0.6 MG/DL (0.3-1.2); BLOOD UREA NITROGEN 16 MG/DL (9-23); CALCIUM LEVEL 9.5 MG/DL (8.3-10.6); CARBON DIOXIDE LEVEL 25 MMOL/L (20-31); CHLORIDE LEVEL 108 MMOL/L (98-107); CHOLESTEROL LEVEL 193 MG/DL (<200); CREATININE FOR GFR 1.04 MG/DL (0.70-1.30); GLOMERULAR FILTRATION RATE > 60.0 (>49); GLUCOSE, FASTING 93 MG/DL (74-106); HDL CHOLESTEROL 36.4 MG/DL (>40); LDL CHOLESTEROL 131.2 MG/DL (<100); NON-HDL-C 156.6 MG/DL; POTASSIUM SERUM 4.5 MMOL/L (3.5-5.1); SODIUM LEVEL 134 MMOL/L (136-145); TRIGLYCERIDES LEVEL 127 MG/DL (<150)
[2023-09-03 14:12] LABS: HEMOGLOBIN A1c 6.1 % (4.0-6.0)
== END ==
LOC: M LAB 12:10
PROVIDERS: ATTEND Family Medicine
DX: E66.9 Obesity, unspecified (principal); Z79.899 Other long term (current) drug therapy

== ENCOUNTER → 2024-08-24 | Outpatient (CLI) | payer MEDICARE, MEDICAID ==
[2024-08-24 16:46] LABS: BASO # 0.1 10^3/uL (0.0-0.2); BASO % 0.9 % (0.0-1.0); EOS # 0.2 10^3/uL (0.0-0.5); EOS % 1.8 % (0.0-3.0); HEMATOCRIT 40.6 % (42.0-52.0); HEMOGLOBIN 13.9 g/dl (13.5-17.5); LYMPH # 2.5 10^3/uL (1.5-5.0); LYMPH % 26.8 % (24.0-44.0); MEAN CORPUSCULAR HEMOGLOBIN 27.7 pg (27.0-33.0); MEAN CORPUSCULAR HGB CONC 34.2 g/dl (32.0-36.5); MONO % 11.2 % (2.0-8.0); NEUTROPHILS # 5.4 10^3/uL (1.5-8.5); PLATELET COUNT, AUTOMATED 256 10^3/uL (150-450); RED BLOOD COUNT 5.01 10^6/uL (4.30-6.10); WHITE BLOOD COUNT 9.2 10^3/uL (4.0-10.0)
[2024-08-24 17:11] LABS: HEMOGLOBIN A1c 6.5 % (4.0-6.0)
[2024-08-24 17:18] LABS: BLOOD UREA NITROGEN 20 MG/DL (9-23); CARBON DIOXIDE LEVEL 23 MMOL/L (20-31); CHLORIDE LEVEL 108 MMOL/L (98-107); CREATININE FOR GFR 0.98 MG/DL (0.70-1.30); GLOMERULAR FILTRATION RATE > 60.0 (>49); GLUCOSE, FASTING 156 MG/DL (74-106); POTASSIUM SERUM 3.8 MMOL/L (3.5-5.1); SODIUM LEVEL 142 MMOL/L (136-145)
== END ==
LOC: M LAB 15:41
PROVIDERS: ATTEND Family Medicine
DX: Z00.00 Encounter for general adult medical examination without abnormal findings (principal)